=== PATIENT | female | born 1990 | race Two or more races ===

== ENCOUNTER 2018-06-29 09:35 | Outpatient (CLI) | payer OTHER | END 2018-06-29 09:45 | disposition home or self-care (01) | LOC: RX STUDY 09:35 | DX: N39.0 Urinary tract infection, site not specified (principal) ==

== ENCOUNTER 2023-10-15 08:54 | Outpatient (CLI) | payer OTHER | END 2023-10-15 09:02 | disposition home or self-care (01) | LOC: RX STUDY 08:54 | PROVIDERS: ATTEND Internal Medicine Hematology & Oncology | DX: Z31.41 Encounter for fertility testing (principal) ==